=== PATIENT | male | born 2000 ===

== ENCOUNTER 2023-02-06 20:33 | Emergency (ER) | payer MEDICAID, SELFPAY ==
--- NOTE | 2023-02-06 20:44 | ED.GENADULT ---
HPI - General Adult General Chief complaint: Urogenital-Male Stated complaint: abd pain, ?std Time Seen by Provider: 02/06/23 21:15 Source: patient Mode of arrival: ambulatory Limitations: no limitations History of Present Illness HPI narrative: Patient had unprotected sex been having pain and discharge for last few days no history of STDs in the past both testicle hurts no swelling of the testicle no trauma no abdominal pain no nausea no vomiting no fever no dysuria or frequency Related Data Previous Rx's Medication Instructions Recorded doxycycline hyclate 100 mg tablet 100 mg PO BID #20 tabs 02/06/23 metronidazole 500 mg tablet 500 mg PO BID 7 days #14 tabs 02/06/23 Allergies Allergy/AdvReac Type Severity Reaction Status Date / Time corn Allergy Hives Verified 02/06/23 20:45 Penicillins Allergy Unknown Verified 02/06/23 20:45 Review of Systems Review of Systems: Yes all other systems are reviewed and are negative [facility] Social History Social History Smoked in Last 30 Days: No Use of substances other than those prescribed or required for medical reasons: No Advance Directives: No Advance Directives Information Provided: Yes Physical Exam ED Vital Signs: Vital Signs - 24 hr 02/06/23 20:46 02/06/23 21:30 Temperature 100.3 F 98.7 F Pulse Rate 64 Respiratory Rate 18 Blood Pressure 123/74 Pulse Oximetry 99 Oxygen Delivery Method Room Air BMI result Body Mass Index 18.5 Appearance: Alert. Oriented X3. No acute distress. Neck: Normal inspection. Neck supple. CVS: Normal heart rate and rhythm. Pulses normal. Respiratory: No respiratory distress. Equal air entry bilateral, Abdomen: Soft and nontender. Bowel sounds are present, no mass palpable, no CVA tenderness : Purulent penile discharge normal testicle nontender no mass palpable no hernia Neuro: Oriented X 3. Course Course Course Narrative: RME- 22 year old male presents for evaluation of urethral discharge and testicular pain. Plan for labs, UA, CTNG, srotal US Medications Administered Discontinued Medications Generic Name Dose Route Start Last Admin Trade Name Freq PRN Reason Stop Dose Admin Ceftriaxone Sodium 500 mg/ 0 mg 02/06/23 21:31 02/06/23 21:41 Lidocaine HCl 1 ml IM 02/06/23 21:32 1 kit ONCE ONE Administration Doxycycline Monohydrate 100 mg 02/06/23 21:31 02/06/23 21:42 Doxycycline Monohydrate 100 Mg Capsule PO 02/06/23 21:32 100 mg ONCE ONE Administration Metronidazole 500 mg 02/06/23 21:31 02/06/23 21:41 Metronidazole 500 Mg Tablet PO 02/06/23 21:32 500 mg ONCE ONE Administration Medical Decision Making Medical Decision Making [facility] Narrative: Patient likely with GC urethritis will treat him with Rocephin, Flagyl, doxycycline advised to use protection while having sex ,ultrasound of the testicles normal Differential Diagnosis Epididymitis/GC urethritis /UTI Lab Data [facility] Lab Attestation statement: I reviewed the patient's lab results. Labs: Lab Results 02/06/23 Range/Units 21:02 Urine Color Yellow Urine Appearance Hazy Urine pH 7.0 (5.0-9.0) Ur Specific [place] 1.020 (1.005-1.025) Urine Protein Negative (Neg-Trace) mg/dL Urine Glucose (UA) Negative (Negative) mg/dL Urine Ketones Negative (Negative) mg/dL Urine Blood Trace (Negative) Urine Nitrite Negative (Negative) Ur Leukocyte Esterase Large (3+) H (Negative) Urine RBC 0-2 (0-2) /HPF Urine WBC >50 H (0-5) /HPF Ur Squamous Epith Cells 0-2 (0-2) /HPF Urine Bacteria None Seen (None Seen) Hyaline Casts 0-2 (0-2) /LPF Discharge Plan Discharge Clinical Impression: Acute gonococcal urethritis Patient Disposition: Home, Self-Care Instructions: Sexually Transmitted Diseases (ED), Gonorrhea (ED) Additional Instructions: Use protection when having sex Tell your partners that you have likely gonorrhea infection Take the medication as prescribed, finish the course Prescriptions: New doxycycline hyclate 100 mg tablet 100 mg PO BID Qty: 20 0RF metronidazole 500 mg tablet 500 mg PO BID 7 Days Qty: 14 0RF Interventions: ED Discharge Assessment Last Done: 02/06/23 21:49 Discharge Date/Time: 02/06/23 21:49
[2023-02-06 20:46] VITALS: BP 123/74; PULSE 64; RESP 18; TEMP 37.9; O2SAT 99; BMI 18.5
[2023-02-06 21:30] VITALS: TEMP 37.1
--- NOTE | 2023-02-06 21:46 | PC.NURSE ---
blood work orders canceled by dr bocanegra. pt calm and cooperative. pt medicated according to michael. pt ambulatory. pt provided with discharge packet. pt verbalized understanding of discharge.
== END 2023-02-06 21:49 | disposition home or self-care (01) ==
PROVIDERS: Emergency Provider Internal Medicine
DX: A54.01 Gonococcal cystitis and urethritis, unspecified (principal); N50.812 Left testicular pain; N50.811 Right testicular pain
CPT/HCPCS: 0353U; 76870; 81001; 87086; 93975; 96372; 99284; J0696